=== PATIENT | male | born 1995 | race Asian ===

== ENCOUNTER → 2020-02-28 | Outpatient (CLI) | payer BC | LOC: HYPER 09:24 | PROVIDERS: ATTEND Emergency Medicine | DX: L89.893 Pressure ulcer of other site, stage 3 (principal); I10 Essential (primary) hypertension; T82.857D Stenosis of other cardiac prosthetic devices, implants and grafts, subsequent encounter; Z79.01 Long term (current) use of anticoagulants; Z95.810 Presence of automatic (implantable) cardiac defibrillator; Z86.711 Personal history of pulmonary embolism ==

== ENCOUNTER → 2020-03-13 | Outpatient (CLI) | payer BC | LOC: HYPER 09:14 | PROVIDERS: ATTEND Emergency Medicine | DX: L89.812 Pressure ulcer of head, stage 2 (principal); T82.857D Stenosis of other cardiac prosthetic devices, implants and grafts, subsequent encounter; L89.893 Pressure ulcer of other site, stage 3; I10 Essential (primary) hypertension; Z95.810 Presence of automatic (implantable) cardiac defibrillator; Z79.01 Long term (current) use of anticoagulants; Z86.711 Personal history of pulmonary embolism; Y83.1 Surgical operation with implant of artificial internal device as the cause of abnormal reaction of the patient, or of later complication, without mention of misadventure at the time of the procedure ==